=== PATIENT | female | born 1970 | race Caucasian/White ===

== ENCOUNTER 2017-01-20 10:53 | Emergency (ER) | payer OTHER ==
[~2017-01-20] VITALS: Ht 162.6 cm; Wt 96.5 kg
[~2017-01-20 10:53] MED LIST: ALBU8.5H3 INH; BENZ100C70 PO; CETI10CA PO; DICL50TA11 PO; FIORICET PO; IBUP400T22 PO; IBUP800T25 PO; METH500T PO; NAPR-260 PO
[2017-01-20 10:55] VITALS: Ht 162.6 cm; Wt 96.5 kg
[2017-01-20] MEDS ORDERED: KETOROLAC 60 MG INJ IM STA (11:36)
--- NOTE | 2017-01-20 11:40 | ERD ---
ER Documentation Chief Complaint Date/Time DATE: 01/20/17 TIME: 11:38 Chief Complaint LEFT FIRST TOE PAIN,REDNESS HPI 40-year-old female presented emergency department for left fifth toe pain for couple of months. Patient stated that her pain increased in the last few days. Is not sure if she had a injury and/or punctured wound. with 5 miscarriages. LMP: Stated that started yesterday. Denies headache, loss of consciousness, dizziness, blurry vision, changes in vision, photophobia, facial pain, ear pain, throat pain, difficulty swallowing, neck pain, shoulder pain, chest pain, cough, hemoptysis, abdominal pain, back pain, loss of appetite, nausea, vomiting, hematochezia, diarrhea, constipation, urinary symptoms, , the possibility of being , bladder and bowel incontinences, injury/trauma, numbness or tingling sensation, difficulty walking, recent travel, recent exposure to illness, recent antibiotic use in the last 3 months, fever, chills. Allergies to penicillin, codeine, sulfa. Past medical history of asthma. Surgical history of right arm surgery 2. Medications: Not taking any prescription medication at home. 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 Smokes cigarettes occasionally. Denies use of alcohol, use of illegal drugs. ROS All systems reviewed and are negative except as per history of present illness. Medications Home Meds Active Scripts Oxycodone HCl/Acetaminophen (Percocet 5-325 mg Tablet) 1 Each Tablet, 1 EACH PO QHS Y for PAIN, #14 TAB Prov:SHYLAMACHONENITAMARY Castillo 01/20/17 Ibuprofen* (Motrin*) 800 Mg Tab, 800 MG PO Q8 Y for PAIN AND OR ELEVATED TEMP, # 30 TAB Prov:SALOME GLOVER F 01/20/17 Ibuprofen* (Motrin*) 400 Mg Tab, 400 MG PO Q6H Y for PAIN AND OR ELEVATED TEMP, #30 TAB Prov:DEANDRE CAO NP 04/25/16 Cetirizine Hcl* (Zyrtec*) 10 Mg Capsule, 10 MG PO DAILY, #30 TAB.CHEW Prov:DEANDRE CAO NP 04/25/16 Benzonatate* (Tessalon Perle*) 100 Mg Capsule, 100 MG PO Q8H Y for COUGH, #20 CAP Prov:DEANDRE CAO NP 04/25/16 Albuterol Sulfate* (Proair HFA*) 8.5 Gm Hfa.aer.ad, 2 PUFF INH Q4H Y for WHEEZING AND SOB, #1 INHALER Prov:DEANDRE CAO NP 04/25/16 Methocarbamol* (Robaxin*) 500 Mg Tab, 500 MG PO Q8, #15 TAB Prov:YOUNG SOLIS 03/24/16 Diclofenac Sodium* (Diclofenac Sodium*) 50 Mg Tablet.dr, 50 MG PO TID, #30 TAB Prov:YOUNG SOLIS 03/24/16 Naproxen* (Naprosyn*) 500 Mg Tablet, 500 MG PO BID Y for PAIN AND/OR INFLAMMATION, #30 TAB Prov:FORREST FUNEZ PA-C 03/20/16 Acetamin/Butalbital/Caffeine* (Fioricet*) 1 Tab Tab, 1 TAB PO Q4H Y for PAIN LEVEL 1-5, #20 TAB Prov:BRANDON PALMER NP 10/01/15 Ibuprofen* (Motrin*) 800 Mg Tab, 800 MG PO Q6, #30 TAB Prov:BRANDON PALMER NP 10/01/15 Allergies Allergies: Coded Allergies: Penicillins (Verified Allergy, Unknown, 01/20/17) Sulfa (Sulfonamide Antibiotics) (Verified Allergy, Unknown, 01/20/17) codeine (Verified Allergy, Unknown, 01/20/17) PMhx/Soc History of Surgery: Yes (R.arm) Anesthesia Reaction: No Hx Neurological Disorder: No Hx Respiratory Disorders: Yes (Asthma) Hx Cardiac Disorders: No Hx Psychiatric Problems: No Hx Miscellaneous Medical Probl: No Hx Alcohol Use: No Hx Substance Use: No Hx Tobacco Use: No Smoking Status: Never smoker Physical Exam Vitals Vital Signs Date Time Temp Pulse Resp B/P Pulse Ox O2 Delivery O2 Flow Rate FiO2 01/20/17 10:55 98.4 73 18 135/78 98 Physical Exam CONSTITUTIONAL: Well-appearing; well-nourished; in no apparent distress. HEAD: Normocephalic; atraumatic. EYES: Conjunctiva clear, sclera non-icteric, EOM intact. PERRL Ears: Hearing intact. EACs clear, TMs non-bulging, non-inflamed, translucent & mobile, ossicles normal appearance, No obstructions, no erythema, no discharges Nose: No obstructions. No polyps. No external lesions. Mucosa non-inflamed. No external lesions, septum and turbinates normal. No rhinorrhea. No discharges. Frontal sinus is non-tender to palpation. Maxillary sinus is non-tender to palpation. MOUTH: Moist mucous membranes, no lesion, no obstructions, no vesicles, no thrush, patent airway Throat: Uvula in midline. Right tonsil is +1 with no erythema, no exudate. Left tonsil is +1 with no erythema, no exudate. Tolerating secretions well. Good gag reflex. Patent airway. Neck: Supple, without lesions, bruits, or adenopathy. No mass. Thyroid non- enlarged and non-tender to palpation. CHEST: Symmetrical chest. Respirations even and not labored. No retractions noted. CARDIOVASCULAR: Normal S1, S2. RRR. No murmurs, gallops. RESPIRATORY: Normal chest excursion with respiration; breath sounds clear and equal bilaterally; no wheezes, rhonchi, or rales. Breathing even and unlabored. Speaking in clear, full, and complete sentences w/ ease. ABDOMEN: Normal bowel sounds normal. Soft, round, non-distended, non-guarding, no tenderness, no rebound, no organomegaly, no masses, no pulsating abdominal mass. No hernia. No peritoneal signs. : No CVA tenderness. BACK: Symmetrical shoulder. Spine is midline without deformity, tenderness. No evidence of trauma or deformity. PELVIS: Stable pelvis. No evidence of trauma or deformity. MUSCULOSKELETAL: Normal gait and station. No misalignment, asymmetry, crepitation, defects, tenderness, masses, effusions, decreased range of motion, instability, atrophy or abnormal strength or tone in the head, neck, spine, ribs , pelvis or extremities except left inferior aspect of the fifth toe has swelling and tenderness to palpation. Good and full range of motion of left toes/left ankle/left knee. No evidence of trauma. Ambulatory. No calf tenderness. NEUROVASCULAR: Distal pulses are present. Pedal pulse are present, equal, and normal. Capillary refills are < 2 seconds. NEUROLOGIC: Alert and oriented x4. Speaks full and clear sentences. Cranial Nerves II-XII normal. Sensation to pain, touch, and proprioception normal. Grossly unremarkable. No neurologic deficits. Romberg test is negative. PSYCHOLOGICAL: The patients mood and manner are appropriate. No hallucinations , delusions. Not SI. Not HI. Has the capacity to decide for self SKIN: Normal for age and ethnicity; warm; dry; good turgor; no apparent lesions or exudates. No rashes, hives, discoloration. Intact. Results 24 hrs Current Medications Medications (Trade) Dose Ordered Sig/Jossue Route PRN Reason Start Time Stop Time Status Last Admin Dose Admin Ketorolac Tromethamine (Toradol) 60 mg ONCE STAT IM 01/20/17 11:36 01/20/17 11:39 DC 01/20/17 11:55 Procedures/MDM Examination: Please see physical examination. Disease process, medical treatment was explained to the patient and family member. They verbalized understanding and agreed with the diagnostic tests, medical treatment, and follow-up care. Radiology: Left foot x-ray Impression soft tissue swelling seen adjacent to the fifth MTP joint. No acute fracture or dislocation is identified. No radiodense foreign body or evidence of subcutaneous gas is seen. Treatment: Toradol. Re-evaluation: Denies headache, dizziness, blurry vision, neck pain, shoulder pain, chest pain, back pain, abdominal pain, nausea, vomiting. No episode of emesis in the emergency department. Alert and oriented 4. Speaks full and clear sentences. Respirations even and unlabored. Lung sounds clear to auscultation. Active bowel sounds. There is no right upper/right lower/ epigastric/left upper/left lower abdominal tenderness and light and deep palpation. Negative on Rovsings sign. Negative [place] sign. Able to jump 5 times without developing right-sided abdominal pain. No peritoneal signs. Ambulatory with steady gait. No neurovascular deficits. No neurological deficits. Ambulatory with steady gait. Consultation: None. Differential diagnosis: Fracture versus dislocation versus displacement versus contusion versus sprain versus foreign body Medical decision makin-year-old female presented emergency department for left fifth toe pain for couple of months. Patient stated that her pain increased in the last few days. Is not sure if she had a injury and/or punctured wound. Patient's complaint, patient's history about her complaint, my physical findings, diagnostic test results, my reevaluation are consistent my final diagnosis of left foot pain. Medications prescribed are the following: Motrin. Percocet (patient stated that she has taken this before without reaction) to take only at night for pain and to assist with sleep. Patient and family member are made aware of the side effects and adverse reactions of the medications prescribed. Instructed on when to seek emergent and medical attention in case allergic/anaphylactic reactions or severe side effects and or adverse reactions to medications. Patient and family member verbalized understanding. Patient instructed Instructed to follow-up with his PCP in 24-48 hours. Instructed to Call 911 for chest pain, shortness of breath. Advised to come back here in ED as soon as possible for severity of symptoms which includes but not limited to: any new symptoms; shortness of breath/difficulty of breathing; cardiovascular changes; severe gastrointestinal symptoms; signs and symptoms of bleeding and or infection; signs of compartment syndrome/neurovascular changes; neurological changes/deficits. Patient and family member verbalized understanding. Upon discharge, patient is alert and oriented x 4, speaks full and clear sentences, denies pain, has no neurological deficits, has no neurovascular deficits, difficulty of breathing. Breathing even and unlabored. Lung sounds are clear to auscultation. Not in distress. Appears comfortable. Ambulatory with steady gait. Appears satisfied with care provided here in ED. Departure Diagnosis: Primary Impression: Foot pain Additional Impression: Injury of foot Condition: Good Additional Instructions: Instructed to follow-up with his PCP in 24-48 hours. Instructed to Call 911 for chest pain, shortness of breath. Advised to come back here in ED as soon as possible for severity of symptoms which includes but not limited to: any new symptoms; shortness of breath/difficulty of breathing; cardiovascular changes; severe gastrointestinal symptoms; signs and symptoms of bleeding and or infection; signs of compartment syndrome/neurovascular changes; neurological changes/deficits. Patient and family member verbalized understanding. SALOME GLOVER Jan 20, 2017 11:40
--- NOTE | 2017-01-20 12:47 | RADRPT ---
PROCEDURE: XR Foot. CLINICAL INDICATION: Injury, pain TECHNIQUE: Three views of the left foot are available for review. COMPARISON: None available FINDINGS: Soft tissue swelling is seen adjacent to the fifth MTP joint. No acute fracture or dislocation is i dentified. There is no radiodense foreign body or evidence of subcutaneous gas. Bony mineralizatio n is normal. Inferior calcaneal spur is incidentally noted. IMPRESSION: 1. Soft tissue swelling is seen adjacent to the fifth MTP joint. 2. No acute fracture or dislocation is identified. 3. No radiodense foreign body or evidence of subcutaneous gas is seen. RPTAT: HDWR .Cruz Montanez MD, MD Date Time Electronically viewed and signed by .Cruz Montanez MD, on 01/20/2017 12:47 .R/
[2017-01-20] MEDS ORDERED: IBUP800T25 PO (13:23)
[2017-01-20] MEDS ORDERED: OXYC-279 PO (13:30)
== END 2017-01-20 13:47 | disposition home or self-care (01) ==
LOC: FTE 10:53
DX: S99.922A Unspecified injury of left foot, initial encounter (principal); J45.909 Unspecified asthma, uncomplicated; F17.210 Nicotine dependence, cigarettes, uncomplicated; X58.XXXA Exposure to other specified factors, initial encounter; Y92.9 Unspecified place or not applicable
CPT/HCPCS: 73630; 96372; J1885; Z7502

== ENCOUNTER 2017-06-04 23:35 | Emergency (ER) | payer SELFPAY ==
[~2017-06-04] VITALS: Ht 167.6 cm; Wt 97.4 kg
[~2017-06-04 23:35] MED LIST changes: +OXYC-279 PO
[2017-06-04 23:40] VITALS: Ht 167.6 cm; Wt 97.4 kg
== END 2017-06-05 03:13 | disposition left against medical advice (07) ==
LOC: FTE 23:35
DX: Z53.21 Procedure and treatment not carried out due to patient leaving prior to being seen by health care provider (principal)